=== PATIENT | female | born 1955 | race Caucasian/White ===

== ENCOUNTER → 2017-07-29 | Outpatient (CLI) | payer OTHER | LOC: M.RAD 08:59 | DX: Z12.31 Encounter for screening mammogram for malignant neoplasm of breast (principal) ==

== ENCOUNTER → 2018-08-05 | Outpatient (CLI) | payer OTHER | LOC: M.RAD 07:50 | DX: Z12.31 Encounter for screening mammogram for malignant neoplasm of breast (principal) ==

== ENCOUNTER → 2018-08-14 | Outpatient (CLI) | payer OTHER | LOC: M.CT 11:13 | DX: Z13.6 Encounter for screening for cardiovascular disorders (principal); I25.10 Atherosclerotic heart disease of native coronary artery without angina pectoris ==

== ENCOUNTER → 2019-08-10 | Outpatient (CLI) | payer OTHER | LOC: M.RAD 06:29 | PROVIDERS: ATTEND General Practice | DX: Z12.31 Encounter for screening mammogram for malignant neoplasm of breast (principal) ==

== ENCOUNTER → 2020-07-24 | Outpatient (CLI) | payer MEDICARE | LOC: M.RAD 07:50 | PROVIDERS: ATTEND General Practice | DX: Z12.31 Encounter for screening mammogram for malignant neoplasm of breast (principal); N64.89 Other specified disorders of breast ==